=== PATIENT | female | born 1975 | race Caucasian/White ===

== ENCOUNTER 2022-02-08 06:01 | Day surgery (SDC) | payer OTHER ==
[~2022-02-08 06:01] MED LIST: Pre Op ABX Message 1 EACH MISC MISCELLANE ONE
[2022-02-08] MEDS ORDERED: ONDANSETRON 4 MG/2 ML VIAL IVP ONE (06:21)
[2022-02-08] MEDS ORDERED: LIDOCAINE 1% (10MG/ML) FOR IV START INTRADERMA PRN (06:21)
[2022-02-08] MEDS ORDERED: LACTATED RINGERS 1,000 ML IV SCH (06:21)
[2022-02-08] MEDS ORDERED: DEXAMETHASONE SOD PHOSPHATE 4 MG/ML 1 ML VIAL IV ONE (06:21)
[2022-02-08] MEDS ORDERED: MIDAZOLAM 2 MG/2 ML VIAL IV PRN (06:21)
[2022-02-08 06:48] VITALS: TEMP 97
[2022-02-08 06:53] LABS: Basophils # (A) 0.1 k/uL (0-0.2); Basophils % (A) 1 %; Eosinophils # (A) 0.2 k/uL (0-0.7); Eosinophils % (A) 3 %; HCT 41.3 % (34.0-46.0); HGB 12.8 gm/dL (11.4-16.0); Hypochromasia Slight; Lymphocytes # (A) 1.7 k/uL (1.0-4.8); Lymphocytes % (A) 22 %; MCH 26.7 pg (25.0-35.0); MCHC 31.1 g/dL (31.0-37.0); MCV 85.7 fL (80.0-100.0); Monocytes # (A) 0.4 k/uL (0-1.0); Monocytes % (A) 6 %; Neutrophils % (A) 67 %; Platelet Count 308 k/uL (150-450); RBC 4.82 m/uL (3.80-5.40); RDW 15.1 % (11.5-15.5); WBC 7.5 k/uL (3.8-10.6)
[2022-02-08] MEDS ORDERED: HYDROmorphone 0.5 MG/0.5 ML SYRINGE IVP PRN (07:00)
[2022-02-08] MEDS ORDERED: METOCLOPRAMIDE 5 MG/ML 2 ML VIAL IVP PRN (07:00)
[2022-02-08] MEDS ORDERED: KETOROLAC 15 MG/ML 1 ML VIAL ONE (07:15)
[2022-02-08] MEDS ORDERED: LIDOCAINE 1% INJ 10MG/ML (20 ML MDV) ONE (07:15)
[2022-02-08] MEDS ORDERED: PROPOFOL 10 MG/ML 20 ML VIAL IV ONE (07:15)
[2022-02-08] MEDS ORDERED: MIDAZOLAM 2 MG/2 ML VIAL ONE (07:15)
[2022-02-08] MEDS ORDERED: fentaNYL (PF) 50 MCG/ML 2 ML AMP ONE (07:15)
--- NOTE | 2022-02-08 07:59 | P.OP ---
Date of Procedure: 02/08/22 Preoperative Diagnosis: Menorrhagia, dysmenorrhea. Inability to sample uterus in the office. Postoperative Diagnosis: Suspect fibroid uterus, grade 2-3 rectocele. Procedure(s) Performed: Hysteroscopy, D&C Surgeon: Arlyn Barbosa Estimated Blood Loss (ml): 50 IV fluids (ml): 450 Urine output (ml): 150 Pathology: other (Intrauterine curettings) Condition: stable Disposition: PACU Operative Findings: Enlarged bulky uterus, 12 weeks size, clinically significant for fibroids. Grade 2-3 rectocele. Cervical stenosis. Description of Procedure: Patient is brought to bring suite where a general anesthetic is administered without difficulty. She's placed in the dorsal lithotomy position. The cervix, vagina, perineal bodies are all prepped and draped in usual sterile fashion. The appropriate timeout is performed to assure proper patient and procedural identification. Urine hCG is negative. Weighted speculum was placed into the vagina. Bladder is drained for approximately 150 mL of clear yellow urine. Anterior lip of the cervix is grasped with a double-tooth tenaculum. Sounding the uterus is quite difficult, I am not able to access the internal cervical os. For this reason the lacrimal probes are used, the os is entered. The cervix is then gently and systematically dilated using Hanks dilators. Hysteroscope was placed and the cavity is diffused with sterile saline. There is a fair amount of shaggy-appearing tissue noted. No obvious intrauterine fibroids or septa are encountered. Hysteroscope was removed. Medium sharp curette is used and the cavity is systematically curettaged in all 4 quadrants for a moderate amount of tissue. Hysteroscope was once again placed and the cavity appears to be negative. All sponge needle and enhancement counts are correct. Cervix is clean and dry. Patient is brought back to recovery room in good condition with stable vital signs including blood pressure 116/68, pulse 97. She is given Toradol prior to leaving the operative suite. She will follow-up with me in the office in 2 weeks.
[2022-02-08 08:20] VITALS: RESP 16
[2022-02-08] MEDS ORDERED: LACTATED RINGERS 1,000 ML IV ONE (08:34)
[2022-02-08] MEDS ORDERED: ACETAMINOPHEN TAB 500 MG TAB PO ONE (08:48)
[2022-02-08] MEDS ORDERED: ACETAMINOPHEN TAB 500 MG TAB ONE (08:49)
[2022-02-08 09:01] VITALS: BP 127/84; PULSE 77
== END 2022-02-08 09:25 | disposition home or self-care (01) ==
LOC: OR 06:01
PROVIDERS: ATTEND Obstetrics & Gynecology
DX: N92.0 Excessive and frequent menstruation with regular cycle (principal); N94.6 Dysmenorrhea, unspecified; F17.200 Nicotine dependence, unspecified, uncomplicated; K21.9 Gastro-esophageal reflux disease without esophagitis
CPT/HCPCS: 58558; 81025; 88305; 83001; 85025; J2250; J1100; J2405; J2001; J3010; J1885; J2704; J1170

== ENCOUNTER → 2023-01-19 | Outpatient (CLI) | payer OTHER ==
--- NOTE | 2023-01-19 10:11 | MR ---
EXAMINATION TYPE: MR lumbar spine wo con DATE OF EXAM: 01/19/2023 COMPARISON: NONE HISTORY: LOW BACK PAIN INTO LT BUTTOCKS AND THIGH TECHNIQUE: Multiplanar, multisequence imaging of the lumbar spine is performed without IV contrast. FINDINGS: Sagittal images of the lumbar spine show vertebral body heights and alignment to appear sat isfactory. Disc desiccation L3-L4 level. Disc space heights are preserved. The conus medullaris is no rmal in position and signal ending at T12-L1 level. There is small osseous hemangioma involving the T12 vertebra. Axial images shows mild to moderate facet arthropathy at L4-L5 and L5-S1 levels. No large disc hernia tion is seen. Spinal canal is preserved. Bilateral neural foramina are patent. IMPRESSION: Mild multilevel degenerative change. No suspicious large disc herniation is seen.
== END | disposition home or self-care (01) ==
LOC: RADMRIMAIN 01-06 11:05
PROVIDERS: ATTEND Internal Medicine
DX: M47.816 Spondylosis without myelopathy or radiculopathy, lumbar region (principal)
CPT/HCPCS: 72148